=== PATIENT | female | born 1980 | race Caucasian/White ===

== ENCOUNTER 2017-07-04 08:57 | Emergency (ER) | payer OTHER ==
[~2017-07-04] VITALS: Ht 152.4 cm; Wt 56.7 kg
[2017-07-04 08:57] VITALS: BP 122/95
== END 2017-07-04 09:21 | disposition home or self-care (01) ==
LOC: ER 09:00
DX: F41.9 Anxiety disorder, unspecified (principal)
CPT/HCPCS: A4606; Z7610